=== PATIENT | female | born 1980 | race Caucasian/White ===

== ENCOUNTER 2021-11-08 12:18 | Outpatient (REF) | payer OTHER, SELFPAY ==
[2021-11-08 18:32] LABS: Creatinine Urine 38.55 mg/dL; Microalbumin Urine < 5.0 mg/L
[2021-11-08 18:47] LABS: Insulin 9 uU/mL (2-29)
[2021-11-09 07:09] LABS: Estimated Average Glucose 100 mg/dL; Hemoglobin A1c % 5.1 %
[2021-11-09 16:42] LABS: Complement C3 74 mg/dL (83-193)
[2021-11-10 11:52] LABS: Immunoglobulin A 268 mg/dL (47-310); Immunoglobulin G 1129 mg/dL (600-1640); Immunoglobulin M 115 mg/dL (50-300)
[2021-11-10 13:51] LABS: Anti Nuclear Antibody Screen NEGATIVE (NEGATIVE)
[2021-11-10 23:26] LABS: Immunoglobulin E 35 kU/L (<OR=114)
[2021-11-11 12:37] LABS: Antibody to SS-A Antigen <1.0 NEG AI (<1.0 NEG); Antibody to SS-B Antigen <1.0 NEG AI (<1.0 NEG)
== END 2021-11-08 12:19 | disposition home or self-care (01) ==
LOC: HO.MANLDS 12:18
PROVIDERS: PCP Physician Assistant; Visit Provider Physician Assistant
DX: R73.01 Impaired fasting glucose (principal); H92.03 Otalgia, bilateral
CPT/HCPCS: 81372; 82043; 82784; 82785; 83036; 83520; 83525; 86038; 86039; 86160; 86235